=== PATIENT | female | born 1990 | race Caucasian/White ===

== ENCOUNTER 2019-04-03 18:17 | Emergency (ER) | payer BC ==
[2019-04-03] MEDS ORDERED: FLU Vacc QS2019-20(6MOS+)/PF 60 MCG/0.5 ML SYRINGE IM ONE (19:15)
--- NOTE | 2019-04-03 20:35 | EDM.PDOC ---
ED HPI GENERAL MEDICAL PROBLEM - General Chief Complaint: Back Pain or Injury Stated Complaint: BACK AND LT LEG PAIN Time Seen by Provider: 04/03/19 19:12 Source of Information: Reports: Patient History Limitations: Reports: No Limitations - History of Present Illness INITIAL COMMENTS - FREE TEXT/NARRATIVE: TRIAGE NOTE -- Pt has chronic back pain/DDD, pt back hurts worse today and new onset L leg pain/1+ edema. [ End ] As noted the patient has had worsening low back pain for the past couple of days. There is been no fresh injury noted. Risk factors consist of chronic low back pain. Patient had a microdiscectomy in 2009. She took Tylenol today and she took ibuprofen yesterday without improvement. There has been radiation of low back pain to her left lower extremity. She says she has had incontinence of urine twice in the past 3 months. Not a recurrent problem and no problem in recent days. Risk factors consists of obesity, cigarette smoking, and history of back problems. 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: , Other (See Below) Other MAKE UP ARTIST History: c-sections Psychiatric History: Reports: Anxiety, Depression - Past Surgical History GI Surgical History: Reports: Cholecystectomy Female Surgical History: Reports: Section Other Musculoskeletal Surgeries/Procedures:: ankle and lower back surgery (L5- S1 microdiscectomy), left leg surgery Social & Family History - Tobacco Use Smoking Status *Q: Current Every Day Smoker Years of Tobacco use: 1 Packs/Tins Daily: 15 - Caffeine Use Caffeine Use: Reports: Coffee - Recreational Drug Use Recreational Drug Use: No ED ROS GENERAL - Review of Systems Review Of Systems: Comprehensive ROS is negative, except as noted in HPI. ED EXAM,LOWER BACK PAIN/INJURY - Physical Exam Exam: See Below Exam Limited By: No Limitations General Appearance: Alert, WD/WN, No Apparent Distress Eye Exam: Bilateral Eye: EOMI, PERRL Ears: Normal External Exam Nose: Normal Inspection Throat/Mouth: Normal Inspection Head: Atraumatic, Normocephalic Neck: Normal Inspection Respiratory/Chest: No Respiratory Distress, Lungs Clear Cardiovascular: Regular Rate, Rhythm GI/Abdominal: Soft, Non-Tender Back Exam: Normal Inspection. No: CVA Tenderness (L), CVA Tenderness (R) Extremities: Normal Inspection, Other (No lower extremity weakness. Very slight nonpitting edema of the left lower extremity distally.) Neurological: Alert DTR - Lower Extremities: 2+: Knee (R), Knee (L) Psychiatric: Normal Affect Skin Exam: Warm, Dry Course - Vital Signs Text/Narrative:: The patient has a negative test and nothing in her urine to suggest urinary tract infection or kidney stone. LUMBAR spine film does not suggest any acute issue requiring further intervention at this point. It is recommended the patient get an MRI. See additional recommendations in discharge instructions. Last Recorded V/S: Last Vital Signs Temp 36.1 C 04/03/19 18:51 Pulse 83 04/03/19 18:51 Resp 15 04/03/19 18:51 BP 127/79 04/03/19 18:51 Pulse Ox 100 04/03/19 18:51 - Orders/Labs/Meds Orders: Active Orders 24 hr Category Date Time Status Influenza Vaccine Charge [RC] .DISCHARGE Care 04/03/19 18:58 Active Lumbar Spine wo Cont [CT] Stat Exams 04/03/19 20:28 Taken Ketorolac [Toradol] Med 04/03/19 21:32 Once 60 mg IM ONETIME ONE Labs: Laboratory Tests 04/03/19 04/03/19 Range/Units 19:40 19:40 Urine Color Yellow (Yellow) Urine Appearance Clear (Clear) Urine pH 6.0 (5.0-8.0) Ur Specific [place] 1.025 (1.005-1.030) Urine Protein Negative (Negative) Urine Glucose (UA) Negative (Negative) Urine Ketones Negative (Negative) Urine Occult Blood 1+ H (Negative) Urine Nitrite Negative (Negative) Urine Bilirubin Negative (Negative) Urine Urobilinogen 0.2 (0.2-1.0) Ur Leukocyte Esterase Negative (Negative) Urine RBC 5-10 H (0-5) /hpf Urine WBC 0-5 (0-5) /hpf Ur Squamous Epith Cells 5-10 H (0-5) /hpf Urine Bacteria Few (FEW) /hpf Urine Mucus Few (FEW) /hpf Urine HCG, Qual Negative (NEGATIVE) Meds: Medications Discontinued Medications Generic Name Dose Route Start Last Admin Trade Name Jesus Alberto PRN Reason Stop Dose Admin Influenza Virus Vaccine 60 mcg 04/03/19 19:15 Fluzone Quad Syringe IM 04/03/19 19:16 .ONCE ONE Departure - Departure Time of Disposition: 21:35 Disposition: Home, Self-Care 01 Condition: Good Clinical Impression: Acute exacerbation of chronic low back pain, Tobacco abuse counseling Obesity Qualifiers: Obesity type: unspecified obesity type Obesity classification: adult class 3 ( BMI >= 40) Serious obesity comorbidity presence: without serious comorbidity Body mass index: BMI 40.0-44.9 Qualified Code(s): E66.01 - Morbid (severe) obesity due to excess calories; Z68.41 - Body mass index (BMI) 40.0-44.9, adult - Discharge Information Referrals: Emerald Ceja BALLROOM DANCER [Primary Care Provider] - Forms: ED Department Discharge Additional Instructions: Your urine has been examined. There is nothing in the urine to suggest a cause for your low back pain and this was done for completeness. test is negative. You were given a shot of Toradol in the emergency department. This is similar to ibuprofen but a good bit stronger when given this way. As you have not taken ibuprofen for 2 days it is safe to give it and it is recommended that you do not take any other ibuprofen or similar drugs for the next 24 hours. No acute abnormality in the lumbar spine film. Primary needs to order an MRI to get a clear impression of what is going on. Continue your stretching exercises. Add aerobic exercise, 45 minutes to an hour every day if possible. Never less than 3 days a week. This will do a great deal to moderate the back pain. You were also given to understand that cigarette smoking is highly correlated with low back pain and smoking cessation is very important for you. Strict precautions for return to ER, fever, or increased pain, inability to mobilize etc. Sepsis Event Note - Evaluation Sepsis Screening Result: No Definite Risk - Focused Exam Vital Signs: Vital Signs Temp Pulse Resp BP Pulse Ox 04/03/19 18:51 36.1 C 83 15 127/79 100 Date Exam was Performed: 04/03/19 Time Exam was Performed: 21:33 - My Orders Last 24 Hours: My Active Orders 04/03/19 20:28 Lumbar Spine wo Cont [CT] Stat 04/03/19 21:32 Ketorolac [Toradol] 60 mg IM ONETIME ONE - Assessment/Plan Last 24 Hours: My Active Orders 04/03/19 20:28 Lumbar Spine wo Cont [CT] Stat 04/03/19 21:32 Ketorolac [Toradol] 60 mg IM ONETIME ONE
[2019-04-03] MEDS ORDERED: Ketorolac 60 MG/2 ML SDV IM ONE (21:32)
--- NOTE | 2019-04-05 07:42 | CT ---
CT lumbar spine Technique: Multiple axial sections were obtained from the top of T11 inferiorly through the L5-S1 disc. Reconstructed sagittal and coronal images were reviewed. Comparison: Previous plain film lumbar spine study of 01/26/19. Findings: T11-T12 through L3-L4: Posterior discs are maintained. No central canal stenosis or neural foraminal stenosis is seen. L4-L5: Mild diffuse posterior disc bulge is seen. No central canal stenosis or neural foraminal stenosis is seen. L5-S1: Mild posterior disc space narrowing is seen. Posterior spurring noted off of S1. Mild disc protrusion is seen posterolaterally to the left midline. Mild central canal stenosis is noted. Neural foramina are felt to be patent. No bony fracture is seen. No abnormal subluxation is noted. Impression: 1. Degenerative changes at L4-L5 and L5-S1 as noted above. Note: If patient's symptoms persist and further evaluation is needed, MRI could then be considered. Diagnostic code #3 This report was dictated in [place] Standard Time I agree with preliminary report issued by [facility] (ad report finalized on 01/30/19, 10:56 PM Central Time)
== END 2019-04-03 21:56 | disposition home or self-care (01) ==
LOC: JD.ED 18:17
DX: M54.5 Low back pain (principal); E66.9 Obesity, unspecified; Z68.41 Body mass index [BMI] 40.0-44.9, adult; F17.210 Nicotine dependence, cigarettes, uncomplicated; Z71.6 Tobacco abuse counseling; Z23 Encounter for immunization; F41.9 Anxiety disorder, unspecified; F32.9 Major depressive disorder, single episode, unspecified; Z88.1 Allergy status to other antibiotic agents; Z91.040 Latex allergy status; Z91.030 Bee allergy status; Z79.899 Other long term (current) drug therapy
CPT/HCPCS: 72131; 81001; 81025; 90471; 90686; 96372; 99284; J1885; 99282; G0008

== ENCOUNTER 2020-04-11 17:37 | Emergency (ER) | payer BC ==
[2020-04-11] MEDS ORDERED: Ondansetron 4 MG/2 ML SDV IVPUSH ONE (18:07)
[2020-04-11] MEDS ORDERED: Sodium Chloride 0.9% 10 ML Syringe FLUSH PRN (18:08)
--- NOTE | 2020-04-11 18:10 | EDM.PDOC ---
<Glenna Hatch - Last Filed: 04/11/20 18:02> ED HPI GENERAL MEDICAL PROBLEM - General Chief Complaint: Abdominal Pain Stated Complaint: ABD PAIN/HEAD COLD Time Seen by Provider: 04/11/20 17:48 Source of Information: Reports: Patient History Limitations: Reports: No Limitations - History of Present Illness INITIAL COMMENTS - FREE TEXT/NARRATIVE: Jocy is a 29 year old female presenting to the ED with complaints of abdominal pain. She states the pain started in her right lower quadrant on Friday night and has been constant since. The pain has now moved caudally and is "wrapping around her." She describes the pain as achy, dull and constant. She admits to taking Tylenol and Ibuprofen without relief. She does have a history of constipation and admits to taking stool softeners if she doesn't have a bowel movement in two days. She states that she had diarrhea Friday- Friday afternoon. She describes it as really dark, oily and greasy. She admits to having chills starting on Friday, but has not taken her temperature recently. She had mild nausea but contributes it to COVID, which she had in February. She denies vomiting or bloody stools. abdomen Pain Score (Numeric/FACES): 4 - Related Data Allergies Allergy/AdvReac Type Severity Reaction Status Date / Time bee pollen Allergy Hives Verified 04/11/20 17:49 erythromycin base Allergy Nausea and Verified 04/11/20 17:49 Vomiting latex Allergy Hives Verified 04/11/20 17:49 Home Meds: Home Meds Acetaminophen [Tylenol] 650 mg PO Q6H #50 tablet 03/12/15 [Rx] Ibuprofen [Motrin] 200 - 800 mg PO Q6H #50 tablet 03/12/15 [Rx] Orphenadrine [Norflex] 100 mg PO BID 04/03/19 [History] diazePAM [Valium] 5 mg PO TID PRN 04/03/19 [History] Azithromycin 250 mg PO ASDIRECTED #6 tablet 04/11/20 [Rx] Dicyclomine [Bentyl] 20 mg PO TID #6 tab 04/11/20 [Rx] Ondansetron [Zofran ODT] 4 mg PO Q8H PRN #12 tab.dis 04/11/20 [Rx] Past Medical History 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: , Other (See Below) Other FLIGHT DECK OFFICER History: c-sections Psychiatric History: Reports: Anxiety, Depression - Infectious Disease History Infectious Disease History: Reports: Novel Coronavirus - Past Surgical History GI Surgical History: Reports: Cholecystectomy Female Surgical History: Reports: Section Other Musculoskeletal Surgeries/Procedures:: ankle and lower back surgery (L5-S1 microdiscectomy), left leg surgery Social & Family History - Tobacco Use Tobacco Use Status *Q: Current Every Day Tobacco User Years of Tobacco use: 15 Packs/Tins Daily: 1 - Caffeine Use Caffeine Use: Reports: Coffee - Recreational Drug Use Recreational Drug Use: Yes Recreational Drug Type: Reports: Marijuana/Hashish Recreational Drug Use Frequency: Rarely ED ROS GENERAL - Review of Systems Review Of Systems: Comprehensive ROS is negative, except as noted in HPI. ED EXAM, GI/ABD - Physical Exam Exam: See Below Exam Limited By: No Limitations General Appearance: Alert, WD/WN, No Apparent Distress Head: Atraumatic, Normocephalic Neck: Normal Inspection, Supple, Non-Tender, Full Range of Motion Respiratory/Chest: No Respiratory Distress, Lungs Clear, Normal Breath Sounds, No Accessory Muscle Use, Chest Non-Tender Cardiovascular: Normal Peripheral Pulses, Regular Rate, Rhythm, No Edema, No Murmur GI/Abdominal Exam: Normal Bowel Sounds, Distended, Tender (Patient is markedly tender in her epigastric area, right upper quadrant extending down into her right lower quadrant.) Back Exam: Normal Inspection, Full Range of Motion Extremities: Normal Inspection, Normal Range of Motion Neurological: Alert, Oriented, CN II-XII Intact, Normal Cognition, Normal Gait, Normal Reflexes, No Motor/Sensory Deficits Psychiatric: Normal Affect, Normal Mood Skin Exam: Warm, Dry, Intact, Normal Color, No Rash Course - Re-Assessments/Exams Free Text/Narrative Re-Assessment/Exam: 04/11/20 18:13 Jocy presents to the ED with abdominal pain that started on Friday. She did see a provider in [place] that ordered labs, but is aware we will likely need to have them be redrawn. I discussed she will need a CT scan of her abdomen to help determine the source of her pain. She currently denied any pain medications. Routine labs ordered and will wait on results. Departure - Departure Disposition: Home, Self-Care Clinical Impression: Right sided abdominal pain, Corpus luteum cyst of right ovary Constipation Qualifiers: Constipation type: other constipation type Qualified Code(s): K59.09 - Other constipation - Discharge Information Prescriptions: Azithromycin 250 mg PO ASDIRECTED #6 tablet Dicyclomine [Bentyl] 20 mg PO TID #6 tab Ondansetron [Zofran ODT] 4 mg PO Q8H PRN #12 tab.dis PRN Reason: Nausea Instructions: Constipation, Adult, [id number], Ovarian Cyst, [id number] Referrals: Christal Coates PA-C [Primary Care Provider] - Forms: ED Department Discharge Additional Instructions: You have been evaluated in the ED for right sided abdomen pain. You had labs done at this visit along with an abdomen/pelvis CT, these did demonstrate that you are constipated; and that you have a right corpus luteum cyst. You have been given a bottle of magnesium citrate, please drink one half bottle, if you do not have a rather large bowel movement in the next few hours, continue with the last half bottle. Please note that you will have some mild abdomen cramping while using this medication, and you may have some looser stoo ls towards the end of use of this medication. Please note that the oral contrast given at betsey's visit, does also provide somewhat of a laxative effect, the goal is to try to get the hard stool in the right side of the colon through your colon, as it is likely you are having diarrhea over this harder stool ball. You have received IV fluid in the ED to help with the dehydration from the vomiting. Over the next 24-48 hours please try to limit diet to clear liquids and advance as tolerate to a bland diet to alleviate symptoms of nausea/vomiting. Please use the Zofran every 8 hours as needed for nausea. ( You may use the dicyclomine (Bentyl) as directed for abdomen cramping, or use 400-600mg ibuprofen Q6H PRN. Please return to the ED if your symptoms should change or worsen. Sepsis Event Note (ED) - Evaluation Sepsis Screening Result: No Definite Risk <Kate Crow V - Last Filed: 04/11/20 21:28> Course - Vital Signs Last Recorded V/S: Last Vital Signs Temp 97.5 F 04/11/20 17:43 Pulse 90 04/11/20 17:43 Resp 16 04/11/20 17:43 BP 127/91 H 04/11/20 17:43 Pulse Ox 100 04/11/20 17:43 - Orders/Labs/Meds Orders: Active Orders 24 hr Category Date Time Status Peripheral IV Care [RC] . DIRECTED Care 04/11/20 18:08 Active Abdomen Pelvis w Cont [CT] Stat Exams 04/11/20 18:07 Taken Sodium Chloride 0.9% [Normal Saline] 1,000 ml Med 04/11/20 18:15 Active IV ASDIRECTED Sodium Chloride 0.9% [Saline Flush] Med 04/11/20 18:08 Active 10 ml FLUSH ASDIRECTED PRN Sodium Chloride 0.9% [Saline Flush] Med 04/11/20 19:45 Active 10 ml FLUSH BOLUS Peripheral IV Insertion Adult [OM.PC] Routine Oth 04/11/20 18:08 Ordered Medication Orders Sodium Chloride (Normal Saline) 1,000 mls @ 999 mls/hr IV ASDIRECTED JUAN MIGUEL Last Admin: 04/11/20 18:39 Dose: 999 mls/hr Documented by: MARIIA Sodium Chloride (Saline Flush) 10 ml FLUSH ASDIRECTED PRN PRN Reason: Keep Vein Open Last Admin: 04/11/20 18:38 Dose: 10 ml Documented by: MARIIA Sodium Chloride (Saline Flush) 10 ml FLUSH [facility]OLUS [facility] Last Admin: 04/11/20 20:24 Dose: 10 ml Documented by: DINESH Labs: Laboratory Tests 04/11/20 04/11/20 04/11/20 Range/Units 17:53 17:53 18:25 WBC 12.53 H (3.98-10.04) K/mm3 RBC 5.38 H (3.98-5.22) M/mm3 Hgb 16.1 H (11.2-15.7) gm/dl Hct 48.4 H (34.1-44.9) % MCV 90.0 (79.4-94.8) fl MCH 29.9 (25.6-32.2) pg MCHC 33.3 (32.2-35.5) g/dl RDW Std Deviation 41.9 (36.4-46.3) fL Plt Count 242 (182-369) K/mm3 MPV 8.9 L (9.4-12.3) fl Neutrophils % (Manual) 61 H (40-60) % Band Neutrophils % 0 (0-10) % Lymphocytes % (Manual) 33 (20-40) % Atypical Lymphs % 0 % Monocytes % (Manual) 4 (2-10) % Eosinophils % (Manual) 2 (0.7-5.8) % Basophils % (Manual) 0 L (0.1-1.2) Platelet Estimate Adequate Plt Morphology Comment Normal RBC Morph Comment Normal Sodium (136-145) mEq/L Potassium (3.5-5.1) mEq/L Chloride (98-107) mEq/L Carbon Dioxide (21-32) mEq/L Anion Gap (5-15) BUN (7-18) mg/dL Creatinine (0.55-1.02) mg/dL Est Cr Clr Drug Dosing mL/min Estimated GFR (MDRD) (>60) mL/min BUN/Creatinine Ratio (14-18) Glucose (74-106) mg/dL Calcium (8.5-10.1) mg/dL Total Bilirubin (0.2-1.0) mg/dL AST (15-37) U/L ALT (14-59) U/L Alkaline Phosphatase (46-116) U/L C-Reactive Protein (<1.0) mg/dL Total Protein (6.4-8.2) g/dl Albumin (3.4-5.0) g/dl Globulin gm/dL Albumin/Globulin Ratio (1-2) Urine Color Light yellow (Yellow) Urine Appearance Clear (Clear) Urine pH 6.5 (5.0-8.0) Ur Specific [place] 1.015 (1.005-1.030) Urine Protein Negative (Negative) Urine Glucose (UA) Negative (Negative) Urine Ketones Negative (Negative) Urine Occult Blood Trace-lysed H (Negative) Urine Nitrite Negative (Negative) Urine Bilirubin Negative (Negative) Urine Urobilinogen 0.2 (0.2-1.0) Ur Leukocyte Esterase Negative (Negative) Urine RBC 0-5 (0-5) /hpf Urine WBC Not seen (0-5) /hpf Ur Squamous Epith Cells 5-10 H (0-5) /hpf Urine Bacteria Not seen (FEW) /hpf Urine Mucus Not seen (FEW) /hpf Urine HCG, Qual Negative (NEGATIVE) 04/11/20 Range/Units 18:25 WBC (3.98-10.04) K/mm3 RBC (3.98-5.22) M/mm3 Hgb (11.2-15.7) gm/dl Hct (34.1-44.9) % MCV (79.4-94.8) fl MCH (25.6-32.2) pg MCHC (32.2-35.5) g/dl RDW Std Deviation (36.4-46.3) fL Plt Count (182-369) K/mm3 MPV (9.4-12.3) fl Neutrophils % (Manual) (40-60) % Band Neutrophils % (0-10) % Lymphocytes % (Manual) (20-40) % Atypical Lymphs % % Monocytes % (Manual) (2-10) % Eosinophils % (Manual) (0.7-5.8) % Basophils % (Manual) (0.1-1.2) Platelet Estimate Plt Morphology Comment RBC Morph Comment Sodium 138 (136-145) mEq/L Potassium 4.1 (3.5-5.1) mEq/L Chloride 103 (98-107) mEq/L Carbon Dioxide 23 (21-32) mEq/L Anion Gap 16.1 H (5-15) BUN 14 (7-18) mg/dL Creatinine 0.7 (0.55-1.02) mg/dL Est Cr Clr Drug Dosing 104.78 mL/min Estimated GFR (MDRD) > 60 (>60) mL/min BUN/Creatinine Ratio 20.0 H (14-18) Glucose 88 (74-106) mg/dL Calcium 9.2 (8.5-10.1) mg/dL Total Bilirubin 0.3 (0.2-1.0) mg/dL AST 18 (15-37) U/L ALT 41 (14-59) U/L Alkaline Phosphatase 91 (46-116) U/L C-Reactive Protein 0.8 (<1.0) mg/dL Total Protein 7.1 (6.4-8.2) g/dl Albumin 3.5 (3.4-5.0) g/dl Globulin 3.6 gm/dL Albumin/Globulin Ratio 1.0 (1-2) Urine Color (Yellow) Urine Appearance (Clear) Urine pH (5.0-8.0) Ur Specific [place] (1.005-1.030) Urine Protein (Negative) Urine Glucose (UA) (Negative) Urine Ketones (Negative) Urine Occult Blood (Negative) Urine Nitrite (Negative) Urine Bilirubin (Negative) Urine Urobilinogen (0.2-1.0) Ur Leukocyte Esterase (Negative) Urine RBC (0-5) /hpf Urine WBC (0-5) /hpf Ur Squamous Epith Cells (0-5) /hpf Urine Bacteria (FEW) /hpf Urine Mucus (FEW) /hpf Urine HCG, Qual (NEGATIVE) Meds: Medications Generic Name Dose Route Start Last Admin Trade Name Freq PRN Reason Stop Dose Admin Sodium Chloride 1,000 mls @ 999 mls/hr 04/11/20 18:15 04/11/20 18:39 Normal Saline IV 999 mls/hr ASDIRECTED JUAN MIGUEL Administration Sodium Chloride 10 ml 04/11/20 18:08 04/11/20 18:38 Saline Flush FLUSH 10 ml ASDIRECTED PRN Administration Keep Vein Open Sodium Chloride 10 ml 04/11/20 19:45 04/11/20 20:24 Saline Flush FLUSH 10 ml BOLUS JUAN MIGUEL Administration Discontinued Medications Generic Name Dose Route Start Last Admin Trade Name Freq PRN Reason Stop Dose Admin Hydromorphone HCl 1 mg 04/11/20 19:52 04/11/20 19:57 Dilaudid IVPUSH 04/11/20 19:53 1 mg ONETIME ONE Administration Iopamidol 100 ml 04/11/20 18:51 04/11/20 20:23 Isovue-300 (61%) IVPUSH 04/11/20 18:52 100 ml ONETIME ONE Administration Magnesium Citrate 296 ml 04/11/20 21:13 04/11/20 21:19 Citrate Of Magnesia PO 04/11/20 21:14 296 ml ONETIME ONE Administration Ondansetron HCl 4 mg 04/11/20 18:07 04/11/20 18:39 Zofran IVPUSH 04/11/20 18:08 4 mg ONETIME ONE Administration - Re-Assessments/Exams Free Text/Narrative Re-Assessment/Exam: 04/11/20 18:22 I have read and reviewed the student's HPI and examined the patient and agree with SHANIA Ty-student. 04/11/20 19:37 Labs demonstrate a mildly elevated white count at 12.53 with 60% neutrophils and no bands. Metabolic panel essentially unremarkable, CRP is low as well. UA looked good as well, no sign of infection. Still awaiting CT at this time. 04/11/20 21:[address] does demonstrate a moderate amount of constipation present. A small corpus luteum cyst within the right ovary as well. Otherwise appendix was seen and without pathology. All other abdominal vasculature and structures are unremarkable. I do believe the patient could have been having diarrhea, over the stool in her abdomen, and that the stool that has not been evacuated could be the source of her pain, due to the abdomen trying to contract around it. The oral contrast given at today's visit should help, and will provide her with a bottle of mag citrate that she can take in the morning, or tonight if she desires. Departure - Departure Time of Disposition: 21:10 Condition: Good - Discharge Information *PRESCRIPTION DRUG MONITORING PROGRAM REVIEWED*: No *COPY OF PRESCRIPTION DRUG MONITORING REPORT IN PATIENT SUSHMA: No Sepsis Event Note (ED) - Focused Exam Vital Signs: Vital Signs Temp Pulse Resp BP Pulse Ox 04/11/20 17:43 97.5 F 90 16 127/91 H 100 - My Orders Last 24 Hours: My Active Orders 04/11/20 18:07 Abdomen Pelvis w Cont [CT] Stat 04/11/20 18:08 Peripheral IV Care [RC] . DIRECTED Sodium Chloride 0.9% [Saline Flush] 10 ml FLUSH ASDIRECTED PRN Peripheral IV Insertion Adult [OM.PC] Routine 04/11/20 18:15 Sodium Chloride 0.9% [Normal Saline] 1,000 ml IV ASDIRECTED 04/11/20 19:45 Sodium Chloride 0.9% [Saline Flush] 10 ml FLUSH BOLUS - Assessment/Plan Last 24 Hours: My Active Orders 04/11/20 18:07 Abdomen Pelvis w Cont [CT] Stat 04/11/20 18:08 Peripheral IV Care [RC] . DIRECTED Sodium Chloride 0.9% [Saline Flush] 10 ml FLUSH ASDIRECTED PRN Peripheral IV Insertion Adult [OM.PC] Routine 04/11/20 18:15 Sodium Chloride 0.9% [Normal Saline] 1,000 ml IV ASDIRECTED 04/11/20 19:45 Sodium Chloride 0.9% [Saline Flush] 10 ml FLUSH BOLUS
[2020-04-11] MEDS ORDERED: Sodium Chloride 0.9% 1,000 ML IV SCH (18:15)
[2020-04-11] MEDS ORDERED: Iopamidol 612 MG/ML 100 ML Bottle IVPUSH ONE (18:51)
[2020-04-11] MEDS ORDERED: Sodium Chloride 0.9% 10 ML Syringe FLUSH SCH (19:45)
[2020-04-11] MEDS ORDERED: HYDROmorphone 1 MG/ML Syringe IVPUSH ONE (19:52)
[2020-04-11] MEDS ORDERED: Magnesium Citrate Solution 296 ML Bottle PO ONE (21:13)
[2020-04-11] MEDS ORDERED: Ketorolac 30 MG/ML SDV IVPUSH ONE (21:29)
--- NOTE | 2020-04-12 09:34 | CT ---
CT abdomen and pelvis Technique: Multiple axial sections were obtained from above the dome of the diaphragm inferiorly to the pubic symphysis. Intravenous contrast and oral contrast was given. Delayed images were also obtained through the abdomen and pelvis. Reconstructed coronal and sagittal images were obtained. Findings: Visualized lung bases show nothing acute. Liver contains no focal parenchymal abnormality. Surgical clips are seen from prior cholecystectomy. Spleen appears normal. Adrenal glands show no nodule. Pancreas is within normal limits. Kidneys show symmetric contrast enhancement with no discrete hydronephrosis or mass. Delayed images show contrast excretion into both ureters. Ureters show no dilatation. Contrast is also noted within the bladder. Abdominal aorta shows no aneurysm. No retroperitoneal adenopathy is appreciated. No mesenteric abnormalities are appreciated. Appendix is seen which is normal. No pelvic mass or adenopathy is appreciated. Bone window settings were reviewed which show minimal degenerative change at L5-S1. 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 No acute osseous abnormality is appreciated. Impression: 1. Findings believed to be incidental. 2. Nothing acute is appreciated on CT study of the abdomen and pelvis. 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
== END 2020-04-11 21:50 | disposition home or self-care (01) ==
LOC: JD.ED 17:37
DX: N83.11 Corpus luteum cyst of right ovary (principal); K59.09 Other constipation; Z90.49 Acquired absence of other specified parts of digestive tract; F17.210 Nicotine dependence, cigarettes, uncomplicated; Z91.030 Bee allergy status; Z91.040 Latex allergy status; Z88.1 Allergy status to other antibiotic agents; Z79.899 Other long term (current) drug therapy
CPT/HCPCS: 36415; 74177; 80053; 81001; 81025; 85007; 85027; 86140; 96374; 96375; 99284; A9270; J1170; J1885; J2405; J7030; Q9967

== ENCOUNTER 2022-10-27 18:12 | Emergency (ER) | payer MEDICAID ==
[2022-10-27] MEDS ORDERED: Albuterol/Ipratropium 3.0-0.5 MG/3 ML Neb Soln NEB ONE (18:33)
[2022-10-27] MEDS ORDERED: Ibuprofen 600 MG Tab PO ONE (18:33)
[2022-10-27] MEDS ORDERED: Apixaban 5 MG Tab PO ONE (20:32)
== END 2022-10-27 20:48 | disposition home or self-care (01) ==
LOC: JD.ED 18:12
DX: I82.462 Acute embolism and thrombosis of left calf muscular vein (principal); F17.210 Nicotine dependence, cigarettes, uncomplicated; Z86.16 Personal history of COVID-19; Z91.040 Latex allergy status; Z91.048 Other nonmedicinal substance allergy status; Z88.1 Allergy status to other antibiotic agents
CPT/HCPCS: 93971; 94640; 99284; A9270; J7620-GY

== ENCOUNTER 2024-07-15 11:42 | Emergency (ER) | payer MEDICAID | END 2024-07-15 13:45 | disposition home or self-care (01) | LOC: JD.ED 11:42 | DX: M79.662 Pain in left lower leg (principal); F17.210 Nicotine dependence, cigarettes, uncomplicated; Z91.030 Bee allergy status; Z88.1 Allergy status to other antibiotic agents; Z91.040 Latex allergy status; Z79.01 Long term (current) use of anticoagulants; Z79.899 Other long term (current) drug therapy; Z86.16 Personal history of COVID-19 | CPT/HCPCS: 93971-26-LT; 93971-LT; 99283 ==